=== PATIENT | male | born 1955 | race Caucasian/White ===

== ENCOUNTER 2018-04-18 18:09 | Inpatient (IN) | payer MEDICARE, SELFPAY ==
[2018-04-18] MEDS ORDERED: Ondansetron ODT 4 MG TAB PO PRN (20:13)
[2018-04-18] MEDS ORDERED: Carvedilol 3.125 MG TAB PO SCH (21:30)
[2018-04-18] MEDS ORDERED: Magnesium Oxide 400 MG TAB PO SCH (21:45)
[2018-04-18] MEDS ORDERED: Non-Formulary Item 1 EACH (Cefazolin Sodium In 0.9 % Nacl [Cefazolin 2 G/100 Ml-0.9% Nacl IVPB SCH (22:00)
[2018-04-18] MEDS: Acetaminophen 325 MG TAB PO PRN (22:30)
[2018-04-19] MEDS ORDERED: traZODone HCl 50 MG TAB PO PRN (00:19)
[2018-04-19] MEDS: CEFAZOLIN 1 GM in Sodium Chloride 0.9% 100 ML IVPB SCH ×6 (05:10→21:07)
[2018-04-19 06:20] LABS: #Basophils 0.1 thou/uL (0.0-0.2); #Eosinphils 0.1 thou/uL (0.0-0.7); #Lymphocytes 1.3 thou/uL (1.20-3.40); #Monocytes 0.3 thou/uL (0.11-0.59); #Neutrophils 1.5 thou/uL (1.40-6.50); %Basophils 1.6 % (0.0-1.0); %Eosinophils 2.3 % (0.0-10.0); %Lymphocytes 38.8 % (21.0-51.0); %Monocytes 10.1 % (0.0-10.0); %Neutrophils 47.1 % (42.0-75.0); Hemoglobin 9.1 g/dL (14.0-18.0); Mean Corpuscular HGB CONC 30.7 g/dL (32.0-36.0); Mean Corpuscular Hemoglobin 30.8 pg (27.0-31.0); Mean Corpuscular Volume 100.3 fL (78.0-98.0); Mean Platelet Volume 6.8 fL (7.4-10.4); Platelet Count 167 thou/uL (130-400); RBC Distribution Width 17.7 % (11.5-14.5); Red Blood Cell (RBC) Count 2.96 mill/uL (4.70-6.10); White Blood Cell (WBC) Count 3.2 thou/uL (4.8-10.8)
[2018-04-19 06:39] LABS: ALT (SGPT) Less than 7 U/L (8-55); AST (SGOT) 27 U/L (5-34); Albumin 2.4 g/dL (3.4-4.8); Alkaline Phosphatase 173 U/L (40-150); Anion Gap 13 mmol/L (10-20); BUN (Urea Nitrogen) 17 mg/dL (8.4-25.7); Bilirubin, Total 0.7 mg/dL (0.2-1.2); Calc. Creatinine Clearance 74 mL/min (70-130); Calcium 7.7 mg/dL (7.8-10.44); Carbon Dioxide 25 mmol/L (23-31); Chloride 100 mmol/L (98-107); Estimated GFR-MDRD 89; Globulin 4.1 g/dL (2.4-3.5); Glucose 102 mg/dL (80-115); Potassium 4.3 mmol/L (3.5-5.1); Protein, Total 6.5 g/dL (5.8-8.1); Sodium 134 mmol/L (136-145)
[2018-04-19] MEDS: Potassium Chloride 20 MEQ TAB PO SCH (07:45)
[2018-04-19] MEDS: Senokot S 8.6-50 MG TAB PO SCH (07:45)
[2018-04-19] MEDS: Losartan 25 MG TAB PO SCH (07:46)
[2018-04-19] MEDS: Furosemide 40 MG TAB PO SCH ×2 (07:46→16:34)
[2018-04-19] MEDS: Magnesium Oxide 400 MG TAB PO SCH ×2 (07:46→16:34)
[2018-04-19] MEDS: Carvedilol 3.125 MG TAB PO SCH ×2 (07:46→16:34)
[2018-04-19] MEDS ORDERED: Sodium Chloride Irrig Solution 250 ML BOT ONE (08:36)
[2018-04-19] MEDS ORDERED: Polyethylene Glycol 3350 17 GM Packet PO PRN (09:00)
[2018-04-19] MEDS ORDERED: Prevnar 13-Val Conj/PF 0.5 ML SYRINGE IM ONE (09:00)
--- NOTE | 2018-04-19 11:12 | HP ---
PRIMARY CARE PHYSICIAN: Dr. Ruby, [place]. REASON FOR ADMISSION: To complete IV antibiotic course in [facility] post hospitalization. HISTORY OF PRESENT ILLNESS: Mr. Page is a 62-year-old male with multiple significant past medical histories including IVDA, HIV, chronic hep C, situs inversus, and CHF. The patient had a history of stage III sacral decubitus ulcer,nonhealing or slow healing decubitus ulcer. He was recently admitted with MSSA at [facility] then transferred to [facility] to complete the IV antibiotic therapy. On 04/10/2018 , the patient presented back to [facility] for tachycardia and shortness of breath. He was admitted for acute CHF exacerbation. At that time , the patient still has the skin ulcers from the sacral decubitus and has a PICC line, from which he was getting Ancef IV . He was also on oral Bactrim. The patient was treated appropriately at [facility] for the acute reason as above. He received IV Lasix from the ER and continuous oxygen supplement. Per report, the patient had significant improvement of his shortness of breath, but remained tachycardic. He was admitted and was continued on oral Lasix for diuretics. He also continued his IV Ancef and oral Bactrim while being treated for CHF. After 3 midnights of hospital stay, the patient was supposed to go back to [facility] for skilled rehab stay. However, I was told that [facility] declined accepting the patient back due to the issue of suspicious activity that was giving him IV meth through his PICC line while at the SNF facility. The patient denied this and reports that he had been drug free and alcohol free for over the past 4 years. There was also reports from the hospital that patient was drug screened and results were unremarkable. Patient was then referred to [facility] to complete his IV antibiotic until 04/25/2018. The patient reports no significant adverse effects with current medications. He has a scheduled appointment with his PCP, Dr. Ruby , on 26 of April. This time, the patient reports that he will be going back home with his after completion of the IV antibiotic at [facility]. PAST MEDICAL HISTORY: 1. Hepatitis C, chronic. 2. CHF, unspecified. 3. HIV. 4. Situs inversus totalis. 5. Protein-calorie malnutrition. 6. History of IVDA. 7. History of MSSA. 8. History of chronic sacral decubitus ulcer. 9. Hypertension. ALLERGIES: NO KNOWN ALLERGIES. MEDICATIONS: 1. DuoNeb q.4 hours p.r.n. and three times a day scheduled. 2. Carvedilol 3.125 mg p.o. b.i.d. 3. Cefazolin sodium 1 g q.8 hours until 04/25/2018. 4. Furosemide 20 mg b.i.d. 5. Losartan 25 mg p.o. daily. 6. Magnesium oxide 400 mg p.o. b.i.d. 7. Pantoprazole 40 mg daily. 8. Polyethylene glycol 17 g p.o. daily. 9. Potassium chloride 20 mEq p.o. daily. 10. Senokot-S one tablet p.o. daily. 11. Trimethoprim-sulfamethoxazole one tablet p.o. MWF. REVIEW OF SYSTEMS: GENERAL: Reports history of fever, chills, fatigue, general weakness, decreased appetite. HEENT: Denies acute hearing or visual changes. No cold symptoms. RESPIRATORY: Denies cough, sputum production, bloody sputum, or pain with breathing. CARDIAC: Denies chest pain, orthopnea, or dyspnea on exertion. Reports tachycardia and shortness of breath, O2 dependent. GASTROINTESTINAL: No nausea, vomiting, abdominal pain, or diarrhea. Reports constipation. Denies rectal bleeding. GENITOURINARY: No dysuria, hematuria, frequency, urgency, or incontinence. MUSCULOSKELETAL: Reports intermittent arthralgia and joints stiffness. Denies joint swelling or erythema. NEUROLOGIC: Denies focal numbness, focal weakness, tremors, or seizure activities. PSYCH: Reports anxiety and insomnia. Denies depressive symptoms or hallucinations. SKIN: Reports chronic nonhealing sacral decubitus ulcer per HPI. LABORATORY DATA: Recent lab works, 04/10/2018, WBC 4.2, hemoglobin 9.4, hematocrit 29, platelets 128. Chest x-ray on 04/10/2018, slight worsening of fluid overload versus CHF, bibasilar effusion and left base pneumonia unchanged. PHYSICAL EXAMINATION: VITAL SIGNS: On admission, temperature 100.2, pulse 117, respirations 20, O2 saturation 100% with 2 L of O2 per nasal cannula, and blood pressure 125/58. Weight 129 pounds and 5 ounces. Height 5 feet and 10 inches. GENERAL: The patient is awake, alert, and oriented x3. Not in distress, comfortable on exam, eating in dinner tray when seen. No family at bedside. Not in acute distress. HEENT: Normocephalic and atraumatic. PERRL. Anicteric sclerae. Oral mucosa is moist. No oral lesions. NECK: Supple. No LAD. No JVD. No bruit. CHEST: Normal excursion, symmetrical, nonlabored breathing. CARDIAC: Tachycardic. Regular rhythm without murmur. ABDOMEN: Flat, soft. Normoactive bowel sounds. Nondistended and nontender. No rebound or guarding. EXTREMITIES: No edema. Symmetric, good pulses. No cyanosis. NEUROLOGIC: Nonfocal. DTRs 2+. Gait unsteady. PSYCH: Appears calm and pleasant but easily gets agitated with questions, with guarded answers. Appropriate mood and affect. SKIN: three open wounds on the sacral region, appears dry with some adherent exudates and granulation tissues noted. No surrounding periwound erythema, no surrounding edema, refer to wound photos for details. ASSESSMENT AND PLAN: This is a 62-year-old male with multiple comorbidities of IVDA, human immunodeficiency virus, chronic hepatitis C, and chronic sacral decubitus ulcer with methicillin-susceptible Staphylococcus aureus, recently admitted for acute congestive heart failure exacerbation associated with hypoxemia, requiring oxygen supplementation per nasal cannula. Was at [facility] in [place] and was admitted here in [facility] to complete his IV antibiotic until April 25, 2018. The plan is to continue Ancef 2 g q.8 hours until 04/25/2018 and p.o. Bactrim until 04/25/2018. Then to go home and followup with PCP, Dr Tung barahona 04/26/18 as scheduled. We will continue the rest of his transfer medications. The patient will definitely not going to be treated with any narcotics at this point, given the history of suspicious IV narcotic abuse and history of IVDA as well as based from the recommendations from the hospital. We will refer to PT and OT for deconditioning, general weakness, and unsteady gait. Diet with restrictions 1800 mL per 24 hours. Daily weight. Continuous 02, to keep 02 sats 94 percent and above, to wean off if deemed appropriate. Further recommendations depending on the hospital course Gastrointestinal prophylaxis with PPI. Deep venous thrombosis prophylaxis with SCD. ESTIMATED LENGTH OF STAY: 1 week. DISPOSITION: Home with . This was discussed with the patient today and was very agreeable. CODE STATUS: The patient reports full code. Job ID: [id number] MTDD
[2018-04-19 12:25] LABS: CRP (Inflammatory) 1.26 mg/dL (= or < 0.5)
[2018-04-19] MEDS: Acetaminophen 325 MG TAB PO PRN ×2 (14:06→22:10)
[2018-04-20] MEDS: Acetaminophen 325 MG TAB PO PRN ×2 (03:45→12:44)
[2018-04-20] MEDS: CEFAZOLIN 1 GM in Sodium Chloride 0.9% 100 ML IVPB SCH ×6 (04:55→21:01)
[2018-04-20] MEDS ORDERED: Mag-Al 1200 mg/1200 mg/30 ML UDCUP PO PRN (07:31)
[2018-04-20] MEDS: Furosemide 40 MG TAB PO SCH (07:42)
[2018-04-20] MEDS: [UNRECOGNIZED DRUG - OTHER] PO SCH ×2 (07:43→08:32)
[2018-04-20] MEDS: Carvedilol 3.125 MG TAB PO SCH ×2 (07:43→16:47)
[2018-04-20] MEDS: Senokot S 8.6-50 MG TAB PO SCH (07:44)
[2018-04-20] MEDS: Losartan 25 MG TAB PO SCH (07:44)
[2018-04-20] MEDS ORDERED: Mag-Al Plus 1200 MG/1200 MG/120 MG/30 ML UDCUP PO PRN ×2 (07:45→14:50)
[2018-04-20] MEDS: Potassium Chloride 20 MEQ TAB PO SCH (08:30)
[2018-04-20] MEDS: Magnesium Oxide 400 MG TAB PO SCH ×2 (08:30→16:47)
[2018-04-20] MEDS ORDERED: Sulfameth/Trimethoprim DS 800-160mg TAB PO SCH (09:00)
[2018-04-20] MEDS ORDERED: Calcium Carbonate 500 MG ChewTAB PO SCH (15:00)
[2018-04-21] MEDS: CEFAZOLIN 1 GM in Sodium Chloride 0.9% 100 ML IVPB SCH ×6 (05:05→21:33)
[2018-04-21] MEDS: Acetaminophen 325 MG TAB PO PRN ×4 (06:14→21:32)
[2018-04-21] MEDS: [UNRECOGNIZED DRUG - OTHER] PO SCH (08:54)
[2018-04-21] MEDS: Potassium Chloride 20 MEQ TAB PO SCH (08:56)
[2018-04-21] MEDS: Magnesium Oxide 400 MG TAB PO SCH ×2 (08:56→17:14)
[2018-04-21] MEDS: Carvedilol 3.125 MG TAB PO SCH ×2 (08:56→17:14)
[2018-04-21] MEDS: Senokot S 8.6-50 MG TAB PO SCH (08:56)
[2018-04-21] MEDS: Losartan 25 MG TAB PO SCH (08:58)
[2018-04-21] MEDS ORDERED: Furosemide 20 MG TAB PO SCH (09:00)
[2018-04-21 17:11] VITALS: BMI 18.6
[2018-04-22] MEDS: Acetaminophen 325 MG TAB PO PRN (03:15)
[2018-04-22] MEDS: CEFAZOLIN 1 GM in Sodium Chloride 0.9% 100 ML IVPB SCH ×2 (04:04→05:17)
[2018-04-22 06:47] VITALS: BP 129/62; TEMP 97.6
--- NOTE | 2018-04-25 16:17 | DIS ---
DATE OF ADMISSION: 04/18/2018 DATE OF DISCHARGE: 04/22/2018 PRIMARY CARE PHYSICIAN: Dr. Ruby in [place]. REASON FOR ADMISSION: To complete IV antibiotic course in [facility] post hospitalization. DIAGNOSES: 1. Skin abscess with methicillin-susceptible Staphylococcus aureus, requiring to complete IV antibiotic therapy for 1 week. 2. Acute on chronic congestive heart failure. 3. Hypoxemia, O2 requiring. 4. Stage III sacral decubitus ulcer. 5. Anemia. 6. History of situs inversus. SECONDARY DIAGNOSES: 1. History of IV drug use, human immunodeficiency virus, chronic hepatitis C. 2. Noncompliance. DISPOSITION: Home with against medical advice. CONDITION ON DISCHARGE: Stable. The patient was discharged on no medications secondary to noncompliance/against medical advice. Waiver was signed per request. HISTORY OF THE PRESENT ILLNESS AND HOSPITAL COURSE: Mr. Page is a 62-year-old male with multiple significant past medical histories including IV drug use, HIV, chronic hepatitis C, situs inversus, and CHF. He had a history of stage III sacral decubitus ulcer, nonhealing for a while. He was admitted initially at [facility] for MSSA of the skin abscess. He was then transferred to [facility] to complete his IV antibiotic therapy last month. The patient presented back to [facility] for tachycardia and shortness of breath. He was admitted for acute exacerbation in [facility] and then at that time, his IV antibiotic and oral antibiotic were continued. After the patient had stabilized from [facility], the patient was transferred to [facility] to complete the IV antibiotic use of Ancef for another week. Of note, the patient was not accepted back to [facility] due to suspicious behavior of the was giving him an IV meth through his PICC line while at the SNF facility. During the patient's hospital course, he showed significant behaviors of agitation, being rude to the staff, and noncompliance. He does not want to be in fluid restriction. He always tells the nurse while in the hospital he can do everything what he wanted and he gets it. He was very disrespectful to the nurses and aides. He easily gets agitated and raises voice to the physician whenever he does not get what he wanted. In the past few days prior to discharge, he has been asking for OxyContin as he reports headache but could not describe exactly the characteristics of his pain. Sometimes, the patient would tell the pain "anywhere." He does not want any other medicine, but OxyContin. Of note, from hospital notes, the patient could not be given any narcotics secondary to significant history of IV drug use and suspicious meth use IV while in the correction. He was discharged from the hospital on Tylenol alone for pain control, which we continued while he is on the Swing Bed at [place]. The patient was not happy with this. He attempted to go home several times in the middle of the night prior to discharge. After a lengthy discussion by the nursing printing supervisor and by the physician, the patient calms down and gets okay, but of note in the morning of 04/22/2018, he was demanding to have his PICC line taken out and be discharged. He demands to leave and said he would not come back to have the PICC line taken if the doctor will not allow him to. He was requested by the nurse to wait for the attending physician to do rounds that morning, but he insisted and called his . The came in before the physician arrived and the patient signed AMA. The patient was informed of potential consequences of not finishing his IV antibiotic, and he stated "I do not care." He was instructed to return to the emergency department or to his PCP if fever, chills, or general well-being is compromised. He was reminded to follow up with his appointment with Dr. Ruby on 04/26/2018, that was previously scheduled. Prior to the patient's discharge, the arrived to picker tender the patient and there was a reported fighting with the , yelling to each other. The PICC line was removed by the staff appropriately and AMA form was signed by the patient. Dr. Ruby's office was notified of the patient's discharge against medical advice and Dr. Ruby recommended oral antibiotic to the patient that he will prescribe post discharge and he will start taking prior to his next appointment to Dr. Ruby. Vital signs prior to discharge; blood pressure 129/62, temperature 97.6, pulse 85, respirations 18, O2 saturations 96%. Weight 132 pounds, and height 5 feet and 10 inches. Job ID: [id number]
== END 2018-04-22 07:30 | disposition left against medical advice (07) | DRG 602 ==
LOC: MADMS 18:10
PROVIDERS: ADMIT Family Medicine; ATTEND Family Medicine
PROC: 02PYX3Z Removal of Infusion Device from Great Vessel, External Approach (ICD-10-PCS; principal; 2018-04-22)
DX: L02.219 Cutaneous abscess of trunk, unspecified (principal); L89.153 Pressure ulcer of sacral region, stage 3; R53.81 Other malaise; R53.1 Weakness; R26.81 Unsteadiness on feet; B18.2 Chronic viral hepatitis C; F19.10 Other psychoactive substance abuse, uncomplicated; B95.61 Methicillin susceptible Staphylococcus aureus infection as the cause of diseases classified elsewhere; R45.1 Restlessness and agitation; R51 Headache; I11.0 Hypertensive heart disease with heart failure; I50.9 Heart failure, unspecified; D64.9 Anemia, unspecified; K59.00 Constipation, unspecified; R09.02 Hypoxemia; Z21 Asymptomatic human immunodeficiency virus [HIV] infection status; Z79.899 Other long term (current) drug therapy; Z87.798 Personal history of other (corrected) congenital malformations; Z91.19 Patient's noncompliance with other medical treatment and regimen
CPT/HCPCS: 80053; 85025; 86140; G0283-GP; J0690; J7050; J7620; Q0162